=== PATIENT | male | born 1970 | race Caucasian/White ===

== ENCOUNTER → 2021-04-28 07:46 | Outpatient (CLI) | payer BC, SELFPAY ==
--- NOTE | ~2021-04-28 | MR_ITS ---
EXAMINATION: MR brain/brain stem wo con DATE: 04/28/2021 08:23 INDICATION: 2 years of temporal headaches TECHNIQUE: Magnetic resonance imaging (MRI) of the brain and brainstem was performed without intraven ous contrast. Sequences included sagittal and axial T1-weighted SE, axial diffusion-weighted FS SE, a xial T2*-weighted GRE, axial T2-weighted FLAIR, and axial T2-weighted FSE. Apparent diffusion coeffic ient (ADC) maps were created. COMPARISON: None. FINDINGS: There are no areas of restricted diffusion to suggest acute infarction. No intracranial hemorrhage or abnormal intracranial mass lesion. There are no intraparenchymal signal abnormalities seen on the ot her pulse sequences. The ventricles are symmetric and normal in size. Normal variant cavum septum pel lucidum et vergae. There are no abnormal extra-axial fluid collections. Flow voids are seen in the ce rebral arteries on the T2-weighted sequences consistent with their expected patency. Visualized orbit s and soft tissues are unremarkable. There are no areas of abnormal enhancement on the post contrast images. IMPRESSION: 1. Normal brain MR . Reviewed, dictated and finalized at location A. IMPRESSION: 1. Normal brain MR .
== END ==
PROVIDERS: PCP Internal Medicine; Visit Provider Internal Medicine
DX: R51.9 Headache, unspecified (principal)
CPT/HCPCS: 70551

== ENCOUNTER 2024-05-20 13:32 | Outpatient (CLI) | payer BC, SELFPAY ==
--- NOTE | ~2024-05-20 | MR_ITS ---
MRI of the lumbar spine Clinical History: Spondylosis Technique: Axial T2-weighted images, and sagittal T1-weighted, T2-weighted, and T2 fat-sat images wer e acquired. Findings: There is no acute fracture. There is minimal grade 1 retrolisthesis of L2 over L3, and of L 3 over L4. There is mature anterior interbody fusion from L4 through S1. No suspicious bone marrow si gnal reality seen. There is posterior decompression at L4-L5 and L5-S1. At L1-L2, there is moderate degenerative disc narrowing. No disc bulge or herniation. There is severe facet arthropathy. No central canal stenosis. There is minimal left neural foraminal narrowing. Righ t neural foramen preserved. At L2-L3, there is moderate to advanced degenerative disc narrowing. There is mild diffuse disc bulge and moderate to advanced facet arthropathy. No eliana central canal stenosis. There is moderate bilat eral neural foraminal narrowing. At L3-L4, there is severe degenerative disc narrowing. Diffuse disc bulge and severe facet arthropath y result in severe spinal canal stenosis/thecal sac compression. There is severe bilateral neural for aminal compromise. At L4-L5, there is facet arthropathy, but no disc bulge or herniation. No spinal canal stenosis. Ther e is moderate to advanced right neural foraminal narrowing, and mild left neural foraminal narrowing. At L5-S1, there is no disc bulge or herniation. No canal stenosis. Neural foramina are preserved. Paravertebral soft tissues are otherwise unremarkable. Impression: Status post anterior and interbody fusion from L4 through S1, as detailed above. Severe degenerative spondylosis at L3-L4, as detailed above. Moderate degenerative spondylosis at L2-L3, as detailed above. [id number] degenerative spondylosis at L1-L2, as above. Reviewed, dictated and finalized at [facility]. Impression: Status post anterior and interbody fusion from L4 through S1, as detailed above . Severe degenerative spondylosis at L3-L4, as detailed above. Moderate degenerative spondylosis at L2-L3, as detailed above. [id number] degenerative spondylosis at L1-L2, as above.
== END 2024-05-20 13:33 ==
LOC: GOSHIMG 13:33
PROVIDERS: PCP Internal Medicine; Visit Provider Physical Medicine & Rehabilitation
DX: M47.816 Spondylosis without myelopathy or radiculopathy, lumbar region (principal); Z98.1 Arthrodesis status
CPT/HCPCS: 72148

== ENCOUNTER 2024-09-21 08:32 | Outpatient (CLI) | payer BC, SELFPAY ==
--- NOTE | ~2024-09-21 | US_ITS ---
EXAMINATION: US retroperitoneal duplex ltd DATE: 09/21/2024 09:34 FOXER INDICATION: Essential hypertension TECHNIQUE: Sonographic imaging of the kidneys was performed with a 3.5 MHz transducer. Retroperitone al duplex sonogram of the renal arteries also obtained. FINDINGS: No focal flow abnormalities are seen in the renal arteries on color Doppler. The peak syst olic velocities at the origin of the right and left renal arteries and aorta are 107 cm per second, 1 06 cm per second, and 75 cm per second, respectively. The velocities and renal to aortic ratios are w ithin normal limits. IMPRESSION: 1. No Doppler evidence of renal artery stenosis. Reviewed, dictated and finalized at location B. R
== END 2024-09-21 08:33 | disposition home or self-care (01) ==
LOC: GOSHIMG 08:33
PROVIDERS: PCP Physical Medicine & Rehabilitation; Visit Provider Internal Medicine
DX: I10 Essential (primary) hypertension (principal)
CPT/HCPCS: 93976